=== PATIENT | male | born 1970 | race African-American/Black ===

== ENCOUNTER 2021-05-09 02:50 | Emergency (ER) | payer SELFPAY ==
[~2021-05-09] VITALS: Ht 195.6 cm; Wt 95.3 kg
[2021-05-09 03:55] LABS: Urine Bacteria NONE SEEN /hpf (None Seen); Urine Blood Negative /uL (Negative); Urine Specific Gravity 1.011 (1.001-1.035); Urine WBC <1 /hpf (0 - 3)
[2021-05-09 07:22] VITALS: BP 128/94
[2021-05-09] MEDS ORDERED: cefTRIAXone SOD 500 MG VL IM ONE (07:30)
[2021-05-09] MEDS ORDERED: KETOROLAC TROMETH 60MG/2ML VIAL IM ONE (07:30)
[2021-05-09] MEDS ORDERED: AZITHROMYCIN 250 MG TAB PO ONE (07:30)
== END 2021-05-09 08:01 | disposition home or self-care (01) ==
LOC: ER 02:50
DX: S39.012A Strain of muscle, fascia and tendon of lower back, initial encounter (principal); F17.210 Nicotine dependence, cigarettes, uncomplicated; Z20.2 Contact with and (suspected) exposure to infections with a predominantly sexual mode of transmission; X50.1XXA Overexertion from prolonged static or awkward postures, initial encounter; Y93.89 Activity, other specified; Y92.89 Other specified places as the place of occurrence of the external cause; Y99.8 Other external cause status
CPT/HCPCS: 81001; 96372; 99284; J0696; J1885